=== PATIENT | male | born 1950 | race Caucasian/White ===

== ENCOUNTER → 2016-07-07 | Outpatient (CLI) | payer MEDICARE, BC ==
[~2016-07-07] MED LIST: ALLO100T PO; ASCO500 PO; ASPI-1093 PO; CEPH500 PO; COLC0.6T69 PO; EPLE25TA10 PO; FURO40 PO; KDUR20 PO; LORA0.5T2 PO; LOSA50TA37 PO; METF500T4 PO; OMEG1CAP31 PO; PANT40TA25 PO; SOTA80 PO; WARF7.5 PO; ZARO5 PO
[2016-07-07 14:31] VITALS: BP 125/76
== END | disposition home or self-care (01) ==
LOC: HBOWC 13:24
PROVIDERS: ATTEND Emergency Medicine
DX: L59.8 Other specified disorders of the skin and subcutaneous tissue related to radiation (principal); L98.491 Non-pressure chronic ulcer of skin of other sites limited to breakdown of skin; C44.42 Squamous cell carcinoma of skin of scalp and neck; I50.9 Heart failure, unspecified; W88.8XXD Exposure to other ionizing radiation, subsequent encounter
CPT/HCPCS: 97597

== ENCOUNTER → 2016-07-20 | Outpatient (CLI) | payer MEDICARE, BC ==
[2016-07-20 10:56] VITALS: BP 101/70
== END | disposition home or self-care (01) ==
LOC: HBOWC 08:57
PROVIDERS: ATTEND Emergency Medicine Undersea and Hyperbaric Medicine
DX: L59.8 Other specified disorders of the skin and subcutaneous tissue related to radiation (principal); L98.491 Non-pressure chronic ulcer of skin of other sites limited to breakdown of skin; I87.8 Other specified disorders of veins; C44.42 Squamous cell carcinoma of skin of scalp and neck; I50.9 Heart failure, unspecified; W88.8XXD Exposure to other ionizing radiation, subsequent encounter

== ENCOUNTER → 2016-08-03 | Outpatient (CLI) | payer MEDICARE, BC ==
[2016-08-03 11:04] VITALS: BP 105/70
== END | disposition home or self-care (01) ==
LOC: HBOWC 09:54
PROVIDERS: ATTEND Emergency Medicine
DX: L98.491 Non-pressure chronic ulcer of skin of other sites limited to breakdown of skin (principal); L59.8 Other specified disorders of the skin and subcutaneous tissue related to radiation; Z85.828 Personal history of other malignant neoplasm of skin; W88.8XXD Exposure to other ionizing radiation, subsequent encounter
CPT/HCPCS: 97597

== ENCOUNTER → 2016-08-20 | Outpatient (CLI) | payer MEDICARE, BC ==
[2016-08-20 11:35] VITALS: BP 116/85
== END | disposition home or self-care (01) ==
LOC: HBOWC 10:55
PROVIDERS: ATTEND Emergency Medicine
DX: L59.8 Other specified disorders of the skin and subcutaneous tissue related to radiation (principal); L98.491 Non-pressure chronic ulcer of skin of other sites limited to breakdown of skin; Z85.828 Personal history of other malignant neoplasm of skin; W88.8XXD Exposure to other ionizing radiation, subsequent encounter
CPT/HCPCS: 97597

== ENCOUNTER → 2016-09-07 | Outpatient (CLI) | payer MEDICARE, BC ==
[2016-09-07 11:19] VITALS: BP 92/60
== END | disposition home or self-care (01) ==
LOC: HBOWC 09:43
PROVIDERS: ATTEND Emergency Medicine
DX: L59.8 Other specified disorders of the skin and subcutaneous tissue related to radiation (principal); I50.9 Heart failure, unspecified; Z85.828 Personal history of other malignant neoplasm of skin; W88.8XXD Exposure to other ionizing radiation, subsequent encounter
CPT/HCPCS: 97597

== ENCOUNTER → 2016-09-17 | Outpatient (CLI) | payer MEDICARE, BC ==
[~2016-09-17] MED LIST changes: +TRYPSIN/BALSAM PERU/CASTOR OIL 5 GM PACKET [WOUND CENTER ONLY] TP ONE
[2016-09-17 14:25] VITALS: BP 91/67
== END | disposition home or self-care (01) ==
LOC: HBOWC 14:14
PROVIDERS: ATTEND Emergency Medicine Undersea and Hyperbaric Medicine
DX: L59.8 Other specified disorders of the skin and subcutaneous tissue related to radiation (principal); L98.491 Non-pressure chronic ulcer of skin of other sites limited to breakdown of skin; C76.8 Malignant neoplasm of other specified ill-defined sites; I95.9 Hypotension, unspecified; I50.9 Heart failure, unspecified; Y84.2 Radiological procedure and radiotherapy as the cause of abnormal reaction of the patient, or of later complication, without mention of misadventure at the time of the procedure
CPT/HCPCS: 97597

== ENCOUNTER → 2016-10-01 | Outpatient (CLI) | payer MEDICARE, BC ==
[~2016-10-01] MED LIST changes: -TRYPSIN/BALSAM PERU/CASTOR OIL 5 GM PACKET [WOUND CENTER ONLY] TP ONE
[2016-10-01 14:23] VITALS: BP 109/89
== END | disposition home or self-care (01) ==
LOC: HBOWC 13:44
PROVIDERS: ATTEND Emergency Medicine
DX: L59.8 Other specified disorders of the skin and subcutaneous tissue related to radiation (principal); L98.491 Non-pressure chronic ulcer of skin of other sites limited to breakdown of skin; I50.9 Heart failure, unspecified; I95.9 Hypotension, unspecified; Z85.828 Personal history of other malignant neoplasm of skin; Y84.2 Radiological procedure and radiotherapy as the cause of abnormal reaction of the patient, or of later complication, without mention of misadventure at the time of the procedure
CPT/HCPCS: 97597

== ENCOUNTER → 2016-10-15 | Outpatient (CLI) | payer MEDICARE, BC ==
[~2016-10-15] MED LIST changes: +TRYPSIN/BALSAM PERU/CASTOR OIL 5 GM PACKET [WOUND CENTER ONLY] TP ONE
[2016-10-15 15:31] VITALS: BP 92/64
== END | disposition home or self-care (01) ==
LOC: HBOWC 15:15
PROVIDERS: ATTEND Emergency Medicine
DX: L98.491 Non-pressure chronic ulcer of skin of other sites limited to breakdown of skin (principal); L59.8 Other specified disorders of the skin and subcutaneous tissue related to radiation; I95.9 Hypotension, unspecified; I50.9 Heart failure, unspecified; Z85.828 Personal history of other malignant neoplasm of skin; Y84.2 Radiological procedure and radiotherapy as the cause of abnormal reaction of the patient, or of later complication, without mention of misadventure at the time of the procedure

== ENCOUNTER → 2016-10-29 | Outpatient (CLI) | payer MEDICARE, BC ==
[~2016-10-29] MED LIST changes: -TRYPSIN/BALSAM PERU/CASTOR OIL 5 GM PACKET [WOUND CENTER ONLY] TP ONE
[2016-10-29 13:50] VITALS: BP 99/74
== END | disposition home or self-care (01) ==
LOC: HBOWC 13:29
PROVIDERS: ATTEND Emergency Medicine
DX: L59.8 Other specified disorders of the skin and subcutaneous tissue related to radiation (principal); I87.2 Venous insufficiency (chronic) (peripheral); R60.0 Localized edema; I11.0 Hypertensive heart disease with heart failure; I50.9 Heart failure, unspecified; Z85.828 Personal history of other malignant neoplasm of skin; Y84.2 Radiological procedure and radiotherapy as the cause of abnormal reaction of the patient, or of later complication, without mention of misadventure at the time of the procedure
CPT/HCPCS: 97597